=== PATIENT | female | born 1990 | race African-American/Black ===

== ENCOUNTER 2016-12-12 15:37 | Emergency (ER) | payer SELFPAY ==
[2016-12-12 15:45] VITALS: BMI 32.7
--- NOTE | 2016-12-12 15:52 | PDOC ---
History of Present Illness - General Chief Complaint: Hematuria Stated Complaint: RENAL INFECTION, RASH ON FACE Time Seen by Provider: 12/12/16 15:51 History Source: Patient - History of Present Illness Initial Comments: 12/12/16 18:47 26F with pmh of recurrent UTI presents to the ED with b/l 5/10 flank and suprapubic pain, dysuria with 10/10 pain and hematuria and mucus discharge, increased urine frequency and urgency for the past 5 days similar to previous episodes of UTi she had in the past. NO nausea, vomiting, fever. Thought the episode would go away on its own and doesn't have a primary to prescribe her abx for years. Also presents with erythematous pruritic papular rash around the hairline and temples for the past 2 days that the patient suspect to be due to new hair product. 12/12/16 18:54 12/12/16 18:59 Past History - Past Medical History Allergies/Adverse Reactions: Allergies Allergy/AdvReac Type Severity Reaction Status Date / Time ampicillin sodium Allergy Verified 12/12/16 15:44 [From Unasyn] sulbactam sodium Allergy Verified 12/12/16 15:44 [From Unasyn] Home Medications: Ambulatory Orders Nitrofurantoin Macrocrystal [Macrodantin -] 100 mg PO QID #28 capsule 12/12/16 Asthma: No Cancer: No Cardiac Disorders: Yes (murmur) Diabetes: No GI Disorders: No Disorders: Yes (kidney infection) HTN: No Hypercholesterolemia: No Seizures: No Thyroid Disease: No - Surgical History Abdominal Surgery: Yes Cardiac Surgery: Yes (REPAIR AT AGE 8) - Reproductive History Therapeutic (s) & number: Yes Spontaneous : 0 - Psycho/Social/Smoking Cessation Hx Anxiety: No Suicidal Ideation: No Smoking History: Never smoked Have you smoked in the past 12 months: Yes Number of Cigarettes Smoked Daily: 2 Information on smoking cessation initiated: No Hx Alcohol Use: No Drug/Substance Use Hx: No Substance Use Type: None Hx Substance Use Treatment: No Review of Systems - Review of Systems Constitutional: No: Symptoms Reported HEENTM: No: Symptoms Reported Respiratory: No: Symptoms reported Cardiac (ROS): No: Symptoms Reported ABD/GI: No: Symptoms Reported : Yes: See HPI Musculoskeletal: No: Symptoms Reported Integumentary: Yes: See HPI *Physical Exam - Vital Signs Last Vital Signs Temp Pulse Resp BP Pulse Ox 98.5 F 86 18 130/55 100 12/12/16 15:42 12/12/16 15:42 12/12/16 15:42 12/12/16 15:42 12/12/16 15:42 - Physical Exam General Appearance: Yes: Nourished, Appropriately Dressed. No: Apparent Distress HEENT: positive: EOMI, [place] Neck: positive: Trachea midline, Normal Thyroid. negative: Tender Respiratory/Chest: positive: Lungs Clear, Normal Breath Sounds. negative: Chest Tender Cardiovascular: positive: Regular Rhythm, Regular Rate, S1, S2 Vascular Pulses: Dorsalis-Pedis (R): 2+, Doralis-Pedis (L): 2+ Gastrointestinal/Abdominal: positive: Normal Bowel Sounds, Soft, Protuberent. negative: Tender, Organomegaly, Distended, Guarding Musculoskeletal: positive: Normal Inspection, CVA Tenderness (R), CVA Tenderness (L) Neurologic: positive: Fully Oriented, Alert, Normal Mood/Affect Medical Decision Making - Medical Decision Making 12/12/16 19:00 26F with pmh of recurrent UTI presents today with UTI symptoms. Renal U/S negative for hydro UA + for 1+leukocyte esterase 3+ protein, 3+ blood 1072 WBC 57 RBC PAtient started on NItrofurantoin. Claritin for rash *DC/Admit/Observation/Transfer Diagnosis at time of Disposition: UTI (urinary tract infection) Qualifiers: Urinary tract infection type: acute cystitis Hematuria presence: with hematuria Qualified Code(s): N30.01 - Acute cystitis with hematuria - Discharge Dispostion Disposition: HOME - Prescriptions Prescriptions: Nitrofurantoin Macrocrystal [Macrodantin -] 100 mg PO QID #28 capsule - Referrals Referrals: Sailaja Calderon MD [Staff Physician] - - Patient Instructions Printed Discharge Instructions: True or False: Drinking Cranberry Juice Can Help Reduce Your Risk of Urinar, DI for Urinary Tract Infection (UTI)
[2016-12-12 16:06] LABS: URINE APPEARANCE CLEAR; URINE BILIRUBIN 1+ (NEGATIVE); URINE BLOOD 3+ (NEGATIVE); URINE COLOR YELLOW; URINE GLUCOSE (UA) NEGATIVE (NEGATIVE); URINE KETONE NEGATIVE (NEGATIVE); URINE NITRITE NEGATIVE (NEGATIVE)
--- NOTE | 2016-12-12 16:06 | PDOC ---
Attending Attestation - Resident Resident Name: Jason Mercer - ED Attending Attestation I have performed the following: I have examined & evaluated the patient, The case was reviewed & discussed with the resident, I agree w/resident's findings & plan, Exceptions are as noted - HPI HPI: 12/12/16 16:24 26 yo with recurrent UTI presents today for what she feels is another UTI - Physicial Exam PE: 12/12/16 16:26 Vitals Stable, Nontoxic, NAD - Medical Decision Making 12/12/16 16:[address] Mercer's assessment and plan
[2016-12-12 16:10] LABS: URINE LEUK ESTERASE 1+ (NEGATIVE); URINE PROTEIN 3+ (NEGATIVE)
[2016-12-12 16:11] LABS: URINE BACTERIA RARE /hpf (NONE SEEN); URINE MUCUS MANY; URINE RBC 57 /hpf (0-3); URINE WBC 1072 /hpf (3-5); YEAST RARE
[2016-12-12] MEDS ORDERED: LORATADINE 10 MG TABLET PO ONE (16:12)
[2016-12-12] MEDS ORDERED: NITROFURANTOIN MACROCRYSTAL 50 MG CAPSULE (FP) PO SCH (18:00)
[2016-12-12] MEDS ORDERED: NITROFURANTOIN MACROCRYSTAL 50 MG CAPSULE (FP) ONE (18:16)
[2016-12-12 18:50] VITALS: BP 112/72; PULSE 89; TEMP 98.7
== END 2016-12-12 19:17 | disposition home or self-care (01) ==
LOC: JER 15:37
DX: N30.01 Acute cystitis with hematuria (principal); Z72.0 Tobacco use
CPT/HCPCS: 76775-TC; 81003; 81015; 84703; 87086; 99282-25

== ENCOUNTER 2018-10-06 08:23 | Emergency (ER) | payer SELFPAY, OTHER | END 2018-10-06 10:09 | disposition home or self-care (01) | LOC: JERFT 08:23 ==

== ENCOUNTER 2019-04-01 19:05 | Emergency (ER) | payer OTHER ==
[2019-04-01 19:17] VITALS: TEMP 98.7; BMI 33.8
--- NOTE | 2019-04-01 19:53 | PDOC ---
History of Present Illness - General Chief Complaint: Pain Stated Complaint: NAUSEA Time Seen by Provider: 04/01/19 19:43 - History of Present Illness Initial Comments: Ms. Ketan Curran is a 28 y/o female with PMH significant for VSD repair at age 6 , , presenting today with abdominal pain, nausea, and vomiting that started 5 days ago. Describes the pain as sharp and intermittent. Reports NBNB vomiting around twice per day. Pain does not radiate anywhere else. Denies fever/chills. Denies chest pain/shortness of breath. Reports diarrhea. Denies vaginal bleeding. Denies cough. Denies sick contacts. Denies dysuria/hematuria. LN beginning of March. Past History - Past Medical History Allergies/Adverse Reactions: Allergies Allergy/AdvReac Type Severity Reaction Status Date / Time ampicillin sodium Allergy Verified 10/06/18 08:24 [From Unasyn] Penicillins Allergy Verified 10/06/18 08:24 sulbactam sodium Allergy Verified 10/06/18 08:24 [From Unasyn] Home Medications: Ambulatory Orders Naproxen [Naprosyn -] 500 mg PO BID #30 tablet 10/06/18 Nitrofurantoin Monohyd/M-Cryst [Macrobid -] 100 mg PO BID #14 capsule 04/01/19 Asthma: No Cancer: No Cardiac Disorders: Yes (murmur) COPD: No Diabetes: No GI Disorders: No Disorders: Yes (kidney infection) HTN: No Hypercholesterolemia: No Seizures: No Thyroid Disease: No - Surgical History Abdominal Surgery: Yes Cardiac Surgery: Yes - Reproductive History Therapeutic (s) & number: Yes Spontaneous : 0 - Immunization History Immunization Up to Date: Yes - Psycho Social/Smoking Cessation Hx Smoking History: Never smoked Have you smoked in the past 12 months: Yes Number of Cigarettes Smoked Daily: 2 Cigars Per Day: 1 'Breaking Loose' booklet given: 09/07/15 Hx Alcohol Use: No Drug/Substance Use Hx: No Substance Use Type: None Hx Substance Use Treatment: No Review of Systems - Review of Systems Comments:: GENERAL/CONSTITUTIONAL: No fever or chills. No weakness._ HEAD, EYES, EARS, NOSE AND THROAT: No change in vision. No change in hearing. No sore throat._ CARDIOVASCULAR: No chest pain or shortness of breath_ RESPIRATORY: Denies cough, hemoptysis_ GASTROINTESTINAL: Reports nausea and vomiting and abdominal pain and diarrhea. Denies constipation. GENITOURINARY: No dysuria, frequency, or change in urination._ MUSCULOSKELETAL: No joint or muscle swelling or pain. No neck or back pain._ SKIN: No rash_ NEUROLOGIC: No headache, vertigo, loss of consciousness, or change in strength/ sensation._ ENDOCRINE: No increased thirst. No abnormal weight change_ HEMATOLOGIC/LYMPHATIC: No anemia, easy bleeding, or history of blood clots._ ALLERGIC/IMMUNOLOGIC: No hives or skin allergy._ *Physical Exam - Vital Signs Last Vital Signs Temp Pulse Resp BP Pulse Ox 98.7 F 105 H 19 122/54 L 100 04/01/19 19:14 04/01/19 19:14 04/01/19 19:14 04/01/19 19:14 04/01/19 19:14 - Physical Exam GENERAL: Awake, alert, and oriented to person/place/time, in no acute distress_ HEAD: No signs of trauma, normocephalic, atraumatic _ EYES: PERRLA, EOMI, sclera anicteric, conjunctiva clear_ ENT: Hearing grossly normal, nares patent, oropharynx clear without exudates. No uvular deviation. Moist mucosa_ NECK: Normal ROM, supple, no lymphadenopathy, JVD, or masses_ LUNGS: No distress, speaks in full sentences, clear to auscultation bilaterally _ HEART: Regular rate and rhythm, normal S1 and S2, no murmurs appreciated, peripheral pulses normal and equal bilaterally._ ABDOMEN: Soft, TTP epigastric and periumbilical areas. No guarding, no rebound. No masses_ EXTREMITIES: Normal inspection, Normal range of motion, no edema. No clubbing or cyanosis_ NEUROLOGICAL: Cranial nerves II through XII grossly intact. Normal speech, normal gait, no focal sensorimotor deficits _ SKIN: Warm, Dry, normal turgor, no rashes or lesions noted_ BACK: No CVA tenderness bilaterally. ED Treatment Course - LABORATORY CBC & Chemistry Diagram: 04/01/19 20:22 04/01/19 20:22 Medical Decision Making - Medical Decision Making 04/01/19 19:52 28F abdominal pain, nausea, vomiting that started 5 days ago. -cbc, cmp -ua, ucx, upreg 04/01/19 21:34 Upreg positive. Will obtain serum beta hcg quantitative. 04/01/19 22:37 Labs reviewed. Laboratory Tests 04/01/19 04/01/19 04/01/19 20:22 20:22 20:22 WBC 8.8 RBC 4.53 Hgb 10.7 Hct 34.4 MCV 75.8 L MCH 23.7 L MCHC 31.2 L RDW 15.2 Plt Count 319 D MPV 9.5 Absolute Neuts (auto) 4.1 Neutrophils % 46.5 Lymphocytes % 45.1 H Monocytes % 4.3 Eosinophils % 1.3 Basophils % 2.8 H Nucleated RBC % 0 Sodium 140 Potassium 3.6 Chloride 109 H Carbon Dioxide 23 Anion Gap 8 BUN 4.9 L Creatinine 0.6 Est GFR (CKD-EPI)AfAm 144.78 Est GFR (CKD-EPI)NonAf 124.92 Random Glucose 98 Calcium 9.2 Total Bilirubin 0.2 AST 18 ALT 42 Alkaline Phosphatase 72 Total Protein 7.4 Albumin 3.8 Lipase Beta HCG, Quant 4670.8 Urine Color Urine Appearance Urine pH Ur Specific [place] Urine Protein Urine Glucose (UA) Urine Ketones Urine Blood Urine Nitrite Urine Bilirubin Urine Urobilinogen Ur Leukocyte Esterase Urine WBC (Auto) Urine RBC (Auto) Urine Casts (Auto) U Epithel Cells (Auto) Urine Bacteria (Auto) Urine HCG, Qual Positive 04/01/19 04/01/19 20:22 20:22 WBC RBC Hgb Hct MCV MCH MCHC RDW Plt Count MPV Absolute Neuts (auto) Neutrophils % Lymphocytes % Monocytes % Eosinophils % Basophils % Nucleated RBC % Sodium Potassium Chloride Carbon Dioxide Anion Gap BUN Creatinine Est GFR (CKD-EPI)AfAm Est GFR (CKD-EPI)NonAf Random Glucose Calcium Total Bilirubin AST ALT Alkaline Phosphatase Total Protein Albumin Lipase 135 Beta HCG, Quant Urine Color Yellow Urine Appearance Cloudy Urine pH 6.0 Ur Specific [place] 1.016 Urine Protein Negative Urine Glucose (UA) Negative Urine Ketones 1+ H Urine Blood Negative Urine Nitrite Negative Urine Bilirubin Negative Urine Urobilinogen 1.0 Ur Leukocyte Esterase 3+ H Urine WBC (Auto) 16 Urine RBC (Auto) 1 Urine Casts (Auto) 12 U Epithel Cells (Auto) 11.3 Urine Bacteria (Auto) 229.0 Urine HCG, Qual 04/01/19 23:24 US Pelvic shows FINDINGS: Within the endometrium there is a gestational sac and yolk sac. No pole. Small subchorionic hematoma. The uterus measures 9.4 x 6.2 x 6.6 cm. There is no evidence of myometrial masses. The right ovary measures 2.8 x 1.5 x 2.2 cm. There are no right ovarian masses. The left ovary measures 3.9 x 2.8 x 2.5 cm. Left ovary 2.4 x 2.3 x 2.4 cm complex cystic process most likely represents a corpus luteal cyst. There is no free fluid in the pelvis. COLOR DUPLEX: There is satisfactory perfusion to both the left and right ovary with normal appearing arterial and venous spectral waveforms. IMPRESSION: No evidence of ovarian torsion. No evidence of ectopic. Intrauterine identified. No pole identified. This may be due to a normal early intrauterine that is too early to detect a pole versus a spontaneous . If clinically indicated recommend correlation with serial beta hCG levels. Small subchorionic hematoma. 04/01/19 23:34 Pt reports feeling much better. Plan to d/c home with PCP and OB follow up. Patient verbalized understanding and agreement with plan. All questions answered. Discharge - Discharge Information Problems reviewed: Yes Clinical Impression/Diagnosis: Qualifiers: Weeks of gestation: less than 8 weeks Qualified Code(s): Z3A.01 - Less than 8 weeks gestation of Condition: Stable Disposition: HOME - Admission No - Additional Discharge Information Prescriptions: Nitrofurantoin Monohyd/M-Cryst [Macrobid -] 100 mg PO BID #14 capsule - Follow up/Referral Referrals: Mohit Mckeon MD [Staff Physician] - Aminah Xavier MD [Staff Physician] - Jennifer Foster DO [Staff Physician] - - Patient Discharge Instructions Additional Instructions: Your test today was positive. Please make a follow up appointment with your OBGYN. Referrals are provided here if you need them. Please take over the counter vitamins until you are able to see your OBGYN. Please make a follow up appointment with a primary care doctor. Referrals are provided here if you need one. Please stay hydrated as much as possible with water, gatorade, etc. If you experience any new, worsening, or concerning symptoms, including severe abdominal pain, unable to keep down fluids, blood in the vomit or stool, vaginal bleeding, or any other concerns, please return to the emergency department. - Post Discharge Activity
[2019-04-01] MEDS ORDERED: SODIUM CHLORIDE 0.9% 500 ML INFUS.BAG IV ONE (20:34)
[2019-04-01] MEDS ORDERED: ACETAMINOPHEN 1000 MG/100 ML VIAL (NON FORMULARY) IVPB ONE (20:34)
[2019-04-01] MEDS ORDERED: ONDANSETRON 4 MG/2 ML VIAL IVPUSH ONE (20:34)
--- NOTE | 2019-04-01 20:45 | PDOC ---
Documentation entered by Roslyn Gillis SCRIBE, acting as scribe for Joanna Michael MD. Joanna Michael MD: This documentation has been prepared by the candaceibe, Roslyn Gillis SCRIBE, under my direction and personally reviewed by me in its entirety. I confirm that the documentation accurately reflects all work, treatment, procedures, and medical decision making performed by me. Attending Attestation - Resident Resident Name: King Troncoso - ED Attending Attestation I have performed the following: I have examined & evaluated the patient, The case was reviewed & discussed with the resident, I agree w/resident's findings & plan, Exceptions are as noted - HPI HPI: 04/01/19 20:00 The patient is a 28-year-old female with no reported past medical history who presents to the emergency department with several days of nausea and vomiting. The patient reports she's been having nausea with daily 2 episodes of nonbilious , nonbloody vomiting, associated with diarrhea. The patient reports sick contact with her daughter, who has a cough however, she doesn't have any of the patient's symptoms. Denies recent travel. LMP: Beginning of March. - Physicial Exam PE: 04/01/19 20:44 Well-nourished well-developed 28-year-old female who presents with 5 days of nausea vomiting and intermittent diarrhea Head normocephalic atraumatic Neck supple Lungs are clear to auscultation bilaterally CVS is regular rate and rhythm S1-S2 Abdomen there is some mild left lower quadrant tenderness to deep palpation No flank pain Skin is warm and dry Neuro alert and oriented x3, ambulating with ease, no gross focal neuro deficits 04/01/19 20:44 - Medical Decision Making 04/01/19 20:51 The urine test is positive -she denies any pelvic cramping or vaginal bleeding Plan we will add a beta hCG and pelvic ultrasound Impression probable hyperemesis related to 04/01/19 21:43 UA ++ UTI 04/01/19 22:33 Beta-hCG is greater than 4000 04/01/19 22:33 04/01/19 23:30 Pelvic ultrasound shows early intrauterine , no heart tones yet. Patient will need to have repeat beta-hCG and pelvic ultrasound done in 1 week
[2019-04-01 21:00] LABS: EPI CELLS 11.3 /HPF (0-5/HPF); HYALINE CASTS 12 /lpf (0-8); URINE APPEARANCE CLOUDY; URINE BILIRUBIN NEGATIVE (NEGATIVE); URINE COLOR YELLOW; URINE GLUCOSE (UA) NEGATIVE (NEGATIVE); URINE KETONE 1+ (NEGATIVE); URINE LEUK ESTERASE 3+ (NEGATIVE); URINE NITRITE NEGATIVE (NEGATIVE); URINE PROTEIN NEGATIVE (NEGATIVE); URINE RBC 1 /hpf (0-4); URINE WBC 16 /hpf (0-5)
[2019-04-01] MEDS ORDERED: ACETAMINOPHEN INJECTION 100 ML IVPB ONE (21:17)
[2019-04-01] MEDS ORDERED: ONDANSETRON 4 MG/2 ML VIAL ONE (21:18)
[2019-04-01 21:27] LABS: BASO % 2.8 % (0-2.0); EOS % 1.3 % (0-4.5); HEMATOCRIT 34.4 % (32.4-45.2); HEMOGLOBIN 10.7 GM/dL (10.7-15.3); LYMPH % 45.1 % (8-40); MCH 23.7 pg (25.7-33.7); MCHC 31.2 g/dl (32.0-36.0); MEAN CELL VOLUME 75.8 fl (80-96); MEAN PLT VOLUME 9.5 fl (7.5-11.1); MONO % 4.3 % (3.8-10.2); NEUT % 46.5 % (42.8-82.8); PLATELET COUNT 319 K/MM3 (134-434); RBC 4.53 M/mm3 (3.60-5.2); RDW 15.2 % (11.6-15.6); WHITE BLOOD COUNT 8.8 K/mm3 (4.0-10.0)
[2019-04-01] MEDS ORDERED: NITROFURANTOIN MACROCRYSTAL 50 MG CAPSULE (FP) PO SCH (21:45)
[2019-04-01 22:09] LABS: ALBUMIN 3.8 g/dl (3.4-5.0); BILIRUBIN,TOTAL 0.2 mg/dL (0.2-1); BLOOD UREA NITROGEN 4.9 mg/dL (7-18); CALCIUM 9.2 mg/dL (8.5-10.1); CREATININE 0.6 mg/dL (0.55-1.3); POTASSIUM 3.6 mmol/L (3.5-5.1); TOT PROT 7.4 g/dl (6.4-8.2)
[2019-04-01] MEDS ORDERED: NITROFURANTOIN MACROCRYSTAL 50 MG CAPSULE (FP) ONE (22:19)
[2019-04-01 23:48] VITALS: BP 122/63; PULSE 78
== END 2019-04-01 23:27 | disposition home or self-care (01) ==
LOC: JER 19:05
PROC: 3E033NZ Introduction of Analgesics, Hypnotics, Sedatives into Peripheral Vein, Percutaneous Approach (ICD-10-PCS; principal; 2019-04-01)
PROC: 3E033GC Introduction of Other Therapeutic Substance into Peripheral Vein, Percutaneous Approach (ICD-10-PCS; 2019-04-01)
DX: Z3A.01 Less than 8 weeks gestation of pregnancy (principal); O26.91 Pregnancy related conditions, unspecified, first trimester; Z88.8 Allergy status to other drugs, medicaments and biological substances; Z88.0 Allergy status to penicillin; R01.1 Cardiac murmur, unspecified; Z72.0 Tobacco use
CPT/HCPCS: 36415; 76801-TC; 80053; 81003; 83690; 84702; 84703; 85025; 87086; 87186; 96374; 96375; 99282-25; J0131

== ENCOUNTER 2019-07-07 09:38 | Emergency (ER) | payer OTHER ==
[2019-07-07 09:48] VITALS: BMI 32.1
--- NOTE | 2019-07-07 11:12 | PDOC ---
History of Present Illness - General Chief Complaint: Vaginal Bleeding Stated Complaint: VAGINAL BLEEDING Time Seen by Provider: 07/07/19 10:58 - History of Present Illness Initial Comments: 07/07/19 11:12 28 yo F (, concern about meconium), currently approximately 19 weeks , presenting with vaginal bleeding. Had one episode this morning at around 0830, but has since resolved. Complains of mild R sided crampy abominal pain, 5/10, intermittent, which she believes may be the baby kicking. OBGYN Dr. Price last seen yesterday, last ultrasound was June 20 and had no issues. Denies CP, SOB, fevers/chills, urinary symptoms, [place], N/V. LMP February 22, 2019. Past History - Past Medical History Allergies/Adverse Reactions: Allergies Allergy/AdvReac Type Severity Reaction Status Date / Time ampicillin sodium Allergy Verified 07/07/19 09:44 [From Unasyn] Penicillins Allergy Verified 07/07/19 09:44 sulbactam sodium Allergy Verified 07/07/19 09:44 [From Unasyn] Home Medications: Ambulatory Orders Naproxen [Naprosyn -] 500 mg PO BID #30 tablet 10/06/18 Nitrofurantoin Monohyd/M-Cryst [Macrobid -] 100 mg PO BID #14 capsule 04/01/19 Asthma: No Cancer: No Cardiac Disorders: Yes (murmur) COPD: No Diabetes: No GI Disorders: No Disorders: Yes (kidney infection) HTN: No Hypercholesterolemia: No Seizures: No Thyroid Disease: No - Surgical History Abdominal Surgery: Yes Cardiac Surgery: Yes - Reproductive History Therapeutic (s) & number: Yes Spontaneous : 0 - Immunization History Immunization Up to Date: Yes - Psycho Social/Smoking Cessation Hx Smoking History: Never smoked Have you smoked in the past 12 months: Yes Number of Cigarettes Smoked Daily: 2 Cigars Per Day: 1 'Breaking Loose' booklet given: 09/07/15 Hx Alcohol Use: No Drug/Substance Use Hx: No Substance Use Type: None Hx Substance Use Treatment: No Review of Systems - Review of Systems Comments:: 07/07/19 13:11 GENERAL/CONSTITUTIONAL: denies fever, chills, diaphoresis, generalized weakness, malaise, loss of appetite, weight change HEAD, EYES, EARS, NOSE AND THROAT: denies rhinorrhea, nasal congestion, throat pain, throat swelling, difficulty swallowing, mouth swelling, ear pain, eye pain, visual changes NEUROLOGIC: denies headache, focal weakness or paresthesias, dizziness, unsteady gait, seizure, mental status changes, bladder or bowel incontinence CARDIOVASCULAR: denies chest pain, syncope, palpitations, irregular heart rate, lightheadedness, peripheral edema RESPIRATORY: denies cough, shortness of breath, dyspnea with exertion, orthopnea, wheezing, stridor, hemoptysis GASTROINTESTINAL: endorses mild abdominal pain. Denies abdominal distension, nausea, vomiting, diarrhea, constipation, melena, hematochezia GENITOURINARY: endorses vaginal bleeding, now resolved. Denies dysuria, frequency, urgency, hesitancy, hematuria, flank pain, genital pain MUSCULOSKELETAL: denies myalgia, arthralgia, joint swelling, back pain, neck pain SKIN: denies rash, itching, pallor HEMATOLOGIC/IMMUNOLOGIC: denies easy bleeding, easy bruising, lymphadenopathy, frequent infections ENDOCRINE: denies unexplained weight gain, unexplained weight loss, heat intolerance, cold intolerance PSYCHIATRIC: denies anxiety, depression, suicidal or homicidal ideation, hallucinations *Physical Exam - Vital Signs Last Vital Signs Temp Pulse Resp BP Pulse Ox 98.5 F 78 18 105/57 L 100 07/07/19 09:44 07/07/19 09:44 07/07/19 09:44 07/07/19 09:44 07/07/19 09:44 - Physical Exam 07/07/19 13:12 Gen: well-developed, well-nourished, NAD Neuro: AAOX4, CN II-XII intact, FTN intact, EOMI, PERRLA, 5/5 strength, SILT HEENT: atraumatic, normocephalic Neck: trachea midline, supple CV: regular rate, regular rhythm, no murmurs, rubs, or gallops Pulm: CTA b/l, no wheezing Abd: soft, non-distended, palpable uterus right below umbilicus MSK: full ROM, intact pulses Extr: no edema, no deformities Skin: warm, dry ED Treatment Course - LABORATORY CBC & Chemistry Diagram: 07/07/19 11:10 07/07/19 11:10 Medical Decision Making - Medical Decision Making 07/07/19 13:08 Concern for vaginal bleeding during . Abdominal US with single live fetus at approximately 20 weeks. Will dc to L+D. Discharge - Discharge Information Problems reviewed: Yes Clinical Impression/Diagnosis: Vaginal bleeding Condition: Stable Disposition: HOME - Admission No - Follow up/Referral - Patient Discharge Instructions Patient Printed Discharge Instructions: DI for Vaginal Bleeding During Additional Instructions: You were seen with vaginal bleeding. The ultrasound showed a live fetus with a normal heart rate, at approximately 20 weeks gestational age. You will be discharged directly to labor and delivery for close monitoring. Follow up with your primary care doctor and your OBGYN within one week. Return to the ED if you develop new or worsening symptoms. - Post Discharge Activity
[2019-07-07 11:40] LABS: EOS % 1.7 % (0-4.5); HEMATOCRIT 33.8 % (32.4-45.2); HEMOGLOBIN 10.9 GM/dL (10.7-15.3); LYMPH % 34.9 % (8-40); MCH 24.2 pg (25.7-33.7); MCHC 32.2 g/dl (32.0-36.0); MEAN CELL VOLUME 75.2 fl (80-96); MEAN PLT VOLUME 10.2 fl (7.5-11.1); MONO % 4.9 % (3.8-10.2); NEUT % 56.5 % (42.8-82.8); PLATELET COUNT 321 K/MM3 (134-434); RBC 4.49 M/mm3 (3.60-5.2); RDW 15.3 % (11.6-15.6); WHITE BLOOD COUNT 9.1 K/mm3 (4.0-10.0)
[2019-07-07 11:41] LABS: URINE APPEARANCE CLEAR; URINE BILIRUBIN NEGATIVE (NEGATIVE); URINE COLOR YELLOW; URINE GLUCOSE (UA) NEGATIVE (NEGATIVE); URINE KETONE NEGATIVE (NEGATIVE); URINE LEUK ESTERASE NEGATIVE (NEGATIVE); URINE NITRITE NEGATIVE (NEGATIVE); URINE PROTEIN NEGATIVE (NEGATIVE); URINE UROBILINOGEN 0.2 mg/dL (0.2-1.0)
--- NOTE | 2019-07-07 12:56 | PDOC ---
Attending Attestation - Resident Resident Name: Gabi Juarez - ED Attending Attestation I have performed the following: I have examined & evaluated the patient, The case was reviewed & discussed with the resident, I agree w/resident's findings & plan, Exceptions are as noted - HPI HPI: 07/07/19 12:55 28-year-old female, 3 para 1, approximately 18 weeks gestation by last ultrasound presents with an episode of vaginal bleeding that has now resolved. Patient denies any other associated symptomatology. - Physicial Exam PE: 07/07/19 12:55 Patient is awake and alert, well-appearing, in no significant distress. Vital signs are noted Normocephalic and atraumatic PERRLA, EOMI CTA + Gravid uterus with fundus palpable at the umbilicus - Medical Decision Making 07/07/19 12:56 28-year-old female, 3 para 1, at approximately 19 weeks gestation presents with an episode of vaginal bleeding. Will obtain related ultrasound. Will consult [employer]. Will reassess.
[2019-07-07 13:19] LABS: ALBUMIN 3.2 g/dl (3.4-5.0); BILIRUBIN,TOTAL 0.4 mg/dL (0.2-1); CALCIUM 9.2 mg/dL (8.5-10.1); CREATININE 0.4 mg/dL (0.55-1.3); POTASSIUM 4.5 mmol/L (3.5-5.1); TOT PROT 7.2 g/dl (6.4-8.2)
[2019-07-07 14:29] VITALS: BP 133/70; PULSE 77; TEMP 98
== END 2019-07-07 14:24 | disposition home or self-care (01) ==
LOC: JER 09:38
DX: O26.892 Other specified pregnancy related conditions, second trimester (principal); Z3A.19 19 weeks gestation of pregnancy; N93.9 Abnormal uterine and vaginal bleeding, unspecified; Z88.0 Allergy status to penicillin; Z88.8 Allergy status to other drugs, medicaments and biological substances; R01.1 Cardiac murmur, unspecified; Z72.0 Tobacco use
CPT/HCPCS: 36415; 76801-TC; 80053; 81003; 84702; 85025; 86850; 86900; 86901; 87086; 99284-25

== ENCOUNTER 2019-11-21 07:20 | Inpatient (IN) | payer OTHER ==
[2019-11-21] MEDS ORDERED: CITRIC ACID/SODIUM CITRATE 30 ML UNIT-DOSE CUP PO ONE (07:52)
[2019-11-21] MEDS ORDERED: ELECTROLYTE-148 SOLN 1,000 ML IV SCH (08:00)
[2019-11-21 08:04] LABS: EOS % 1.1 % (0-4.5); HEMATOCRIT 27.8 % (32.4-45.2); HEMOGLOBIN 8.7 GM/dL (10.7-15.3); LYMPH % 42.7 % (8-40); MCH 23.2 pg (25.7-33.7); MCHC 31.3 g/dl (32.0-36.0); MEAN CELL VOLUME 74.3 fl (80-96); MEAN PLT VOLUME 10.8 fl (7.5-11.1); MONO % 6.5 % (3.8-10.2); NEUT % 48.7 % (42.8-82.8); PLATELET COUNT 184 K/MM3 (134-434); RBC 3.75 M/mm3 (3.60-5.2); RDW 17.1 % (11.6-15.6); WHITE BLOOD COUNT 7.3 K/mm3 (4.0-10.0)
[2019-11-21 08:14] LABS: INR 0.95 (0.83-1.09); PROTHROMBIN TIME (PATIENT) 11.2 SEC (9.7-13.0)
[2019-11-21 08:17] VITALS: BMI 34.4
[2019-11-21 08:26] LABS: BLOOD UREA NITROGEN 6.7 mg/dL (7-18); CALCIUM 8.1 mg/dL (8.5-10.1); CREATININE 0.6 mg/dL (0.55-1.3); POTASSIUM 3.8 mmol/L (3.5-5.1)
--- NOTE | 2019-11-21 08:27 | HP ---
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: Alzheimer's, CVA, Dementia, Migraine, Multiple Sclerosis, Peripheral Neuropathy, Parkinson's, Seizure, Syncope, TIA, Vertigo, Other Cardiovascular: No: AFIB, Aneurysm, Aortic Insufficiency, Aortic Stenosis, CAD, CHF, Deep Vein Thrombosis, HTN, Hyperlipdemia, GA, Mitral Insufficiency, Mitral Stenosis, Murmur, Pulmonary Hypertension, Other Pulmonary: No: Asthma, Bronchitis, Cancer, COPD, O2 Dependent, Pneumonia, Previously Intubated, Pulmonary Embolus, Pulmonary Fibrosis, Sleep Apnea, Other Gastrointestinal: No: Ascites, Cancer, Constipation, Crohn's Disease, Diverticulitis, Diverticulosis, Esophageal Varices, Gastritis, GERD, GI Bleed, Hemorrhoids, Hiatal Hernia, Inflamatory Bowel Disease, Irritable Bowel Disease, Pancreatitis, Peptic Ulcer Disease, Ulcerative Colitis, Other Hepatobiliary: No: Cirrhosis, Cholelithiasis, Cholecystitis, Choledocholithiasis, Hepatitis A, Hepatitis B, Hepatitis C, Other Renal/: No: Renal Failure, Renal Inusuff, BPH, Cancer, Hematuria, Hemodialysis, Neurogenic Bladder, Renal Calculi, UTI, Other Reproductive: No: Ectopic , Endometriosis, Fibroids, PID, Polycystic Ovary Syndrome, Postmenopausal, Other ...: 4 ...Para: 1 ...Term: 1 ...: 0 ...Spon : 1 ...Induced : 1 ...Living Children: 1 ...Multiple Gestation: 0 ...LMP: 02/22/19 ... Weeks Gestation by Dates: 38.6 ...EDC by Dates: 11/29/19 ...EDC by Sono: 11/28/19 Heme/Onc: No: Anemia, B12 Deficiency, Bleeding Disorder, Cancer, Current Chemotherapy, Current Radiation Therapy, Hemochromatosis, Hypercoaguable State, Myeloproliferative Synd, Sickle Cell Disease, Sickle Cell Trait, Thrombocytopenia, Other Infectious Disease: No: AIDS, C-Diff, Herpes Zoster, HIV, MRSA, STD's, Tuberculosis, VREF, Other Psych: No: Addictions, Anxiety, Bipolar, Depression, Panic, Psychosis, Schizophrenia, Other Musculoskeletal: No: Bursitis, Chronic low back pain, Hemiparesis, Hemiplegia, Osteoarthritis, Paraplegia, Other Rheumatology: No: Fibromyalgia, Gout, Lupus, Rheumatoid Arthritis, Sarcoidosis, Vasculitis, Other ENT: No: Allergic Rhinitis, Sinusitis, Other Endocrine: No: Sam[place]'s Disease, Steph's Disease, Diabetes Insipidus, Diabetes Mellitus, Hyperparathyroidism, Hyperthyroidism, Hypothyroidism, Osteopenia, SIADH, Other Dermatology: No: Basal Cell, Cellulitis, Eczema, Melanoma, Psoriasis, Squamous Cell, Other Additional Medical History: anemia. adhd (no meds). hpv-pos. scoliosis - Past Surgical History Past Surgical History: Yes: Hx Myomectomy: No Hx Transabdominal Cerclage: No Additional Surgical History: cardiac surgery - Smoking History Smoking history: Never smoked Have you smoked in the past 12 months: No Aproximately how many cigarettes per day: 2 - Alcohol/Substance Use Hx Alcohol Use: No - Social History ADL: Independent History of Recent Travel: No Home Medications - Allergies Allergies/Adverse Reactions: Allergies Allergy/AdvReac Type Severity Reaction Status Date / Time ampicillin sodium Allergy Verified 11/21/19 07:57 [From Unasyn] Penicillins Allergy Verified 11/21/19 07:57 sulbactam sodium Allergy Verified 11/21/19 07:57 [From Unasyn] - Home Medications Home Medications: Ambulatory Orders Vitamins (Sjr) - 1 tab PO DAILY 07/07/19 Family Medical History Family History: Unable to Obtain Review of Systems Findings/Remarks: Patient is doing well, anxious and "hungry" - Review of Systems Constitutional: reports: No Symptoms Eyes: reports: No Symptoms HENT: reports: No Symptoms Neck: reports: No Symptoms Cardiovascular: reports: No Symptoms Respiratory: reports: No Symptoms Gastrointestinal: reports: No Symptoms Genitourinary: reports: No Symptoms Breasts: reports: No Symptoms Reported Musculoskeletal: reports: No Symptoms Integumentary: reports: No Symptoms Neurological: reports: No Symptoms Endocrine: reports: No Symptoms Hematology/Lymphatic: reports: No Symptoms Psychiatric: reports: No Symptoms Physical Exam - Maternity Vital Signs: Vital Signs Temperature 99.1 F 11/21/19 07:20 Pulse Rate 103 H 11/21/19 07:20 Respiratory Rate 20 11/21/19 07:20 Blood Pressure 132/88 11/21/19 07:20 O2 Sat by Pulse Oximetry (%) Constitutional: Yes: No Distress HENT: Yes: Atraumatic Neck: Yes: Supple Cardiovascular: Yes: Regular Rate and Rhythm Breast(s): Yes: Other - Abdominal Exam/OB Contractions: No Regularity: Irritability Monitor Mode: External Heart Rate (range): 135 Category: I Accelerations: Uniform Decelerations: None - Vaginal Exam/OB Speculum Exam: No - Physical Exam Musculoskeletal: Yes: WNL Extremities: Yes: WNL Edema: Yes Edema: LLE: Trace, RLE: Trace Integumentary: Yes: WNL Deep Tendon Reflex Grade: Normal +2 ...Motor Strength: WNL Psychiatric: Yes: Alert, Oriented - Labs Lab Results: CBC, BMP 11/21/19 07:35 Imaging - Results Ultrasound: Report Reviewed Assessment/Plan 29 y/o P1 @ 39.0 wks, previous C/S and scheduled repeat, declined BTL on day of admission, reassuring status, anemia, H/O cardiac surgery as a child and adequate normal cardiology evaluation in . Risks and complications of procedure discussed. All questions answered and informed consent obtained. -Await labs results -Proceed with scheduled procedure.
[2019-11-21] MEDS ORDERED: morphine SULFATE/PF 0.5 MG/ML (2cc Syringe - QUVA) EP ONE (08:31)
[2019-11-21] MEDS ORDERED: ONDANSETRON 4 MG/2 ML VIAL IVPUSH PRN (08:31)
[2019-11-21] MEDS ORDERED: oxyCODONE HCL 5 MG TABLET PO PRN (08:35)
--- NOTE | 2019-11-21 08:35 | OP ---
Operative Note - Note: Operative Date: 11/21/19 (dic#[id number]) Pre-Operative Diagnosis: 29 y/o P1 @ 39.0 wks prior c/S desiring repeat Operation: RLTCS Post-Operative Diagnosis: Same as Pre-op Surgeon: Oliver Price Grants Manager: Serjio Salcido Anesthesia: Spinal Estimated Blood Loss (mls): 1,000 Blood Volume Replaced (mls): 200 Operative Report Dictated: Yes
[2019-11-21] MEDS ORDERED: morphine SULFATE/PF 0.5 MG/ML (2cc Syringe - QUVA) ONE (08:39)
[2019-11-21 08:40] LABS: ACTIVATED PTT 26.6 SECONDS (25.2-36.5)
[2019-11-21] MEDS ORDERED: OXYTOCIN 20 UNITS in 0.9% NS 20 UNIT/1,000 ML INFUS.BAG IV SCH (08:45)
[2019-11-21] MEDS ORDERED: OXYTOCIN 10 UNITS/ML VIAL ONE ×2 (09:26→10:22)
[2019-11-21] MEDS ORDERED: CLINDAMYCIN PHOSPHATE 600 MG/4 ML VIAL ONE (09:53)
[2019-11-21] MEDS ORDERED: CLINDAMYCIN 900 MG PREMIX BAG IVPB ONE (09:53)
[2019-11-21] MEDS ORDERED: MIDAZOLAM HCL 2 MG/2 ML SINGLE DOSE VIAL ONE (10:26)
[2019-11-21] MEDS ORDERED: PHENYLEPHRINE HCL 10 MG/1 ML SINGLE DOSE VIAL ONE (10:31)
[2019-11-21 11:11] LABS: CORD HCO3 22.3 mmHg (20-29); CORD PCO2 45.3 mmHg (30-78); CORD pH 7.31 (7.14-7.44)
[2019-11-21 11:15] LABS: CORD HCO3 20.9 mmHg (20-29); CORD PCO2 51.8 mmHg (30-78); CORD pH 7.223 (7.14-7.44)
[2019-11-21 13:32] VITALS: O2SAT 99
[2019-11-21] MEDS: IBUPROFEN 800 MG/8 ML IJ IVPB PRN (17:00)
[2019-11-22] MEDS: IBUPROFEN 800 MG/8 ML IJ IVPB PRN (06:07)
[2019-11-22] MEDS ORDERED: BISACODYL 10 MG SUPP.RECT RC PRN (08:35)
--- NOTE | 2019-11-22 08:51 | PN ---
Post Progress Note - Subjective Subjective: Pain controlled. No fevers/chills. Minimal ambulation. Tolerating PO Post Day: 1 Type of Delivery: Repeat C/S Vital Signs: Vital Signs Temperature 98.3 F 11/22/19 06:00 Pulse Rate 71 11/22/19 06:00 Respiratory Rate 18 11/22/19 08:00 Blood Pressure 120/74 11/22/19 06:00 O2 Sat by Pulse Oximetry (%) 99 11/21/19 13:32 Uterus: Yes: Fundus below umbilicus Incision: Yes: Dressing dry and intact Abdomen/GI: Yes: Abdomen soft, Tolerating PO Lochia: Yes: Rubra Lochia, amount: Small Extremities: Yes: Calves non-tender Activity: Ambulating - Labs Labs: CBC WBC 7.3 K/mm3 (4.0-10.0) 11/21/19 07:35 RBC 3.75 M/mm3 (3.60-5.2) 11/21/19 07:35 Hgb 8.7 GM/dL (10.7-15.3) L 11/21/19 07:35 Hct 27.8 % (32.4-45.2) L D 11/21/19 07:35 MCV 74.3 fl (80-96) L 11/21/19 07:35 MCH 23.2 pg (25.7-33.7) L 11/21/19 07:35 MCHC 31.3 g/dl (32.0-36.0) L 11/21/19 07:35 RDW 17.1 % (11.6-15.6) H 11/21/19 07:35 Plt Count 184 K/MM3 (134-434) D 11/21/19 07:35 MPV 10.8 fl (7.5-11.1) 11/21/19 07:35 Absolute Neuts (auto) 3.6 K/mm3 (1.5-8.0) 11/21/19 07:35 Neutrophils % 48.7 % (42.8-82.8) 11/21/19 07:35 Lymphocytes % 42.7 % (8-40) H D 11/21/19 07:35 Monocytes % 6.5 % (3.8-10.2) 11/21/19 07:35 Eosinophils % 1.1 % (0-4.5) 11/21/19 07:35 Basophils % 1.0 % (0-2.0) 11/21/19 07:35 Nucleated RBC % 3 % (0-0) H 11/21/19 07:35 Assessment/Plan 29yo s/p RLTCS, POD#1 Routine PP care PO pain control F/U AM labs OOB, ambulate D/c to home by POD#3 Simon Mason MD
[2019-11-22 08:58] LABS: BASO % 0.7 % (0-2.0); EOS % 0.2 % (0-4.5); HEMATOCRIT 27.2 % (32.4-45.2); HEMOGLOBIN 8.6 GM/dL (10.7-15.3); LYMPH % 16.1 % (8-40); MCH 24.4 pg (25.7-33.7); MCHC 31.5 g/dl (32.0-36.0); MEAN CELL VOLUME 77.3 fl (80-96); MEAN PLT VOLUME 10.4 fl (7.5-11.1); MONO % 6.2 % (3.8-10.2); NEUT % 76.8 % (42.8-82.8); PLATELET COUNT 164 K/MM3 (134-434); RBC 3.52 M/mm3 (3.60-5.2); RDW 19.4 % (11.6-15.6)
--- NOTE | 2019-11-22 13:07 | OP ---
DATE OF OPERATION: 11/21/2019 PREOPERATIVE DIAGNOSES: Lqrxic-uoyjm-khoy-old 1, para 1 at 39 weeks of gestation, prior section, desiring repeat section, declined sterilization on date of procedure; anemia; history of cardiac surgery as a child. POSTOPERATIVE DIAGNOSES: Mfmqwy-oedoa-tyyu-old 1, para 1 at 39 weeks of gestation, prior section, desiring repeat section, declined sterilization on date of procedure; anemia; history of cardiac surgery as a child. PROCEDURE: Repeat low transverse section. SURGEON: Bala Manzanares MD DOOR PULLER: ANSELMO Perez ANESTHESIA: Spinal. INTRAVENOUS FLUIDS: Crystalloid, 1500 mL. ESTIMATED BLOOD LOSS: 1 L. URINE OUTPUT: Clear urine, 200 mL. COMPLICATIONS: None. FINDINGS: Lower abdominal scar consistent with prior section, mild amount of subcutaneous adipose tissue with fascia all sticky and fibrotic, adherent to the underlying rectus muscles. The rectus muscles were fused at each other in the midline. No parietal peritoneal visceral adhesions at the point of entry. The bladder was slightly adherent to the lower uterine segment. The lower uterine segment was noted effaced. Infant in cephalic presentation, loose nuchal cord x1. Slightly meconium-stained fluid. Live viable male, scores 8 and 9. Uterus with 3 small subserosal fundal leiomyomas, largest 3 x 2 cm. Bilateral tubes and ovaries consistent with normal anatomy. Bladder dome and rectus muscle fascial interface noted to be intact. DESCRIPTION OF PROCEDURE: The patient was taken to the operating room. Anesthesia was found to be adequate. She was then prepped and draped in the normal sterile fashion. Urinary Jo catheter was placed atraumatically. Appropriate timeout took place. Pfannenstiel skin incision was made with the scalpel and carried to the underlying fascia with the Bovie. The fascia was incised in the midline and extended laterally with sharp dissection, then the rectus muscles were dissected off sharply. Rectus muscles were fused to each other in the midline and elevated with Allis clamp superiorly. Sharp dissection took place. Entry to the peritoneum sharply revealed the previously mentioned findings. The incision was extended inferiorly with sharp dissection without difficulty. Bladder blade was placed and findings as previously mentioned. Transverse lower uterine segment incision was made with the scalpel, extended laterally with blunt dissection. Amniotomy revealed slightly stained meconium fluid. was delivered through the surgical incision with mild fundal pressure without difficulty. Umbilical cord was clamped and cut after delay, sample for gases and blood was obtained. was handed off to the waiting NICU staff. The placenta was delivered manually and intact. The uterus was exteriorized through the surgical incision and the intrauterine cavity cleared of all clots and debris. The lower uterine segment incision was reapproximated with 1-0 Polysorb running locked sutures. Oozing from the left hysterotomy incision corner was neutralized with 3 [id number] sutures of the same stitch. Excellent hemostasis noted. The uterus was internalized to the pelvic cavity, and gutters were cleared of all clots and debris. Secondary inspection of the incision revealed excellent hemostasis. Bladder dome and rectus muscle fascial interface was examined. Rectus muscles were reapproximated manually, and fascial incision was reapproximated with 0 Polysorb running nonlocked suture. Excellent structural reapproximation achieved and confirmed by digital palpation by the surgeon. Subcutaneous tissues were copiously irrigated. Bleeding neutralized with Bovie cautery. Skin incision was reapproximated with 3-0 Biosyn subcuticular sutures, excellent reapproximation. Patient in stable condition. Instrument count was reported as correct x2 by the staff. Postoperative blood transfusion to accommodate intraoperative EBL will be performed. BALA MANZANARES MD [id number] MTDD
[2019-11-22] MEDS: IBUPROFEN 600 MG TABLET (FP) PO PRN ×2 (13:15→21:55)
[2019-11-22] MEDS: SIMETHICONE 80 MG TAB.CHEW (FP) PO PRN ×2 (13:16→21:54)
[2019-11-22] MEDS: ACETAMINOPHEN 325 MG TABLET (FP) PO PRN ×2 (13:16→21:54)
--- NOTE | 2019-11-22 15:23 | PN ---
Progress Note (short form) - Note Progress Note: pod#1 s/p c/s with spinal + duramorph. Pt c/o headache, nonpositional in nature, located primarily in temporal region. Denies neck stiffness, dizziness, associated nausea. Reassured patient of low likelihood of this being a postdural puncture headache. Recommended conservative measures and pain Rx. All questions answered.
[2019-11-23] MEDS: IBUPROFEN 600 MG TABLET (FP) PO PRN (05:47)
[2019-11-23] MEDS: ACETAMINOPHEN 325 MG TABLET (FP) PO PRN (05:48)
[2019-11-23] MEDS: SIMETHICONE 80 MG TAB.CHEW (FP) PO PRN (05:50)
--- NOTE | 2019-11-23 06:27 | DS ---
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: Vital Signs Temperature 98.3 F 11/23/19 01:48 Pulse Rate 96 H 11/22/19 22:00 Respiratory Rate 18 11/22/19 22:00 Blood Pressure 138/79 11/22/19 22:00 O2 Sat by Pulse Oximetry (%) 99 11/21/19 13:32 Constitutional: Yes: Well Nourished, No Distress, Calm Eyes: Yes: WNL, Conjunctiva Clear, EOM Intact HENT: Yes: WNL, Atraumatic, Normocephalic Neck: Yes: WNL, Supple, Trachea Midline Cardiovascular: Yes: WNL, Regular Rate and Rhythm Respiratory: Yes: WNL, Regular, CTA Bilaterally Gastrointestinal: Yes: WNL ...Rectal Exam: Yes: WNL Renal/: Yes: WNL ....Post : Yes: Uterus firm, Uterus non-tender, Slight lochia rubra Breast(s): Yes: WNL Musculoskeletal: Yes: WNL Extremities: Yes: WNL Integumentary: Yes: WNL Wound/Incision: Yes: Clean/Dry, Well Approximated, Sutures Intact Neurological: Yes: WNL, Alert, Oriented ...Motor Strength: WNL Psychiatric: Yes: WNL, Alert, Oriented Labs: CBC, BMP 11/22/19 08:35 11/21/19 07:35 Delivery - Delivery Section: Repeat Type of Anesthesia: Spinal EBL (cc): 1,000 Delivery, Single - Stages of Labor Date of Delivery: 11/21/19 Time of Delivery: 10:08 Time Placenta Delivered: 10:09 Placenta: Yes: Expressed - Condition of Electromedical Service Engineer/Laborer Wharf Present: Yes Name: Babs Villeda Gender: Male Weight: 6 lb 8 oz Total Hours ROM (Hrs/Mins): 1 minute - 1 Minute Total Score: 8 5 Minutes Total Score: 9 - [place] Feeding Plan Initial Plan: Exclusive throughout hospitalization Discharge Summary Reason For Visit: C SECTION Procedures: Principal: repeat LST c/s Health Concerns: anemia Plan of Treatment: iron, vit follow up [facility] care 1 week Condition: Stable - Instructions Diet, Activity, Other Instructions: Please return to regular diet as tolerated and refrain from strenuous activity as tolerated. Follow up with MD within a week from discharge. Call health center with any questions or concerns. Referrals: Oliver Price MD [Staff Physician] - Disposition: HOME - Home Medications Comprehensive Discharge Medication List: Ambulatory Orders Vitamins (Sjr) - 1 tab PO DAILY 07/07/19 Acetaminophen [Tylenol] 650 mg PO Q6H PRN #30 capsule MDD 5 11/21/19 Ibuprofen 600 mg PO Q6H PRN #30 tablet 11/21/19 Oxycodone HCl [Oxaydo] 5 mg PO Q6H PRN #14 tablet.orl MDD 5 11/21/19
--- NOTE | 2019-11-23 06:59 | PN ---
Progress Note (short form) - Note Progress Note: Post Anesthesia Note Pt is s/p c section under spinal anesthesia with duramorph intrathecally for post op pain control. Patient is doing well with, pain controlled, no adverse anesthetic effects, no headache, nausea, or back ache. Dept of anesthesiology will sign off care at this time
[2019-11-23 13:00] VITALS: BP 131/78; PULSE 58; TEMP 97.8
--- NOTE | 2019-11-28 11:21 | PATH ---
Surgical Pathology Report Patient Name: DAINA JAMIL Med. Rec. #: [id number] /Age/Gender: 1990 (Age: 29) / F Account: [id number] Location: [facility] OBS/CABLE PULLER Taken: 11/21/2019 Received: 11/21/2019 Reported: 11/28/2019 Physicians: Oliver Price MD Specimen(s) Received PLACENTA Clinical History Final Diagnosis PLACENTA, SECTION: 414 G THIRD TRIMESTER PLACENTA WITH TRIVASCULAR UMBILICAL CORD AND UNREMARKABLE PLACENTAL MEMBRANES. Electronically Signed Lenora Arce M.D. Gross Description The specimen is received fresh labeled placenta and is a 414 gram, 18.0 x 16.5 x 2.7 cm. placenta with attached membranes and umbilical cord. The attached membranes are fontaine, translucent with focal opacities and insert marginally. The umbilical cord measures 12 cm. in length and averages 1.1 cm. in diameter. There is an additional 14 cm in length x 1.2 cm in diameter unremarkable portion of umbilical cord separately received within the same container. The cord inserts eccentrically, 5 cm. to the nearest margin. No true knots or strictures are identified. Cut surface of the umbilical cord reveals 3 vessels. The surface is major-blue with minimal fibrin deposition and appropriate caliber vessels. The maternal surface is red-brown with focal defects. Sectioning reveals red-brown, spongy parenchyma. No lesions are identified. Sign Erector And Repairer sections are submitted in three cassettes as follows: 1- membrane rolls and umbilical cord; 2-3- full thickness sections of placenta. 11/23/2019 [facility]11/23/2019
== END 2019-11-23 16:50 | disposition home or self-care (01) | DRG 540 ==
LOC: JLDR 07:20 → J3W 12:40
PROVIDERS: ADMIT Student in an Organized Health Care Education/Training Program; ATTEND Student in an Organized Health Care Education/Training Program
PROC: 10D00Z1 Extraction of Products of Conception, Low, Open Approach (ICD-10-PCS; principal; 2019-11-21 08:00)
DX: O82 Encounter for cesarean delivery without indication (principal); O34.211 Maternal care for low transverse scar from previous cesarean delivery; O99.02 Anemia complicating childbirth; D64.89 Other specified anemias; Z3A.38 38 weeks gestation of pregnancy; Z37.0 Single live birth; O69.81X0 Labor and delivery complicated by cord around neck, without compression, not applicable or unspecified; O77.0 Labor and delivery complicated by meconium in amniotic fluid; O34.13 Maternal care for benign tumor of corpus uteri, third trimester; D25.2 Subserosal leiomyoma of uterus; Z88.0 Allergy status to penicillin; Z88.8 Allergy status to other drugs, medicaments and biological substances
CPT/HCPCS: 36415; 36430; 36511; 36600; 80048; 82803; 85025; 85610; 85730; 86780; 86850; 86900; 86901; 86922; 88307-TC; 94760; P9038; P9058

== ENCOUNTER 2020-10-31 10:39 | Emergency (ER) | payer OTHER ==
[2020-10-31 10:50] VITALS: BP 123/75; PULSE 76; TEMP 98.4; BMI 33.8
[2020-10-31] MEDS ORDERED: ACETAMINOPHEN 325 MG TABLET (FP) PO ONE (11:33)
[2020-10-31] MEDS ORDERED: PHENAZOPYRIDINE HCL 100 MG TABLET (FP) PO ONE (11:33)
[2020-10-31] MEDS ORDERED: PHENAZOPYRIDINE HCL 100 MG TABLET (FP) ONE (11:38)
[2020-10-31] MEDS ORDERED: ACETAMINOPHEN 325 MG TABLET (FP) ONE (11:38)
[2020-10-31 11:51] LABS: EPI CELLS 10 /uL (0-25.1); HCG,QUALITATIVE URINE Positive; HYALINE CASTS 2 /uL (0-3.1); URINE APPEARANCE CLOUDY; URINE BACTERIA 103 /uL (0-1359); URINE BILIRUBIN NEGATIVE (NEGATIVE); URINE COLOR YELLOW; URINE GLUCOSE (UA) NEGATIVE (NEGATIVE); URINE KETONE NEGATIVE (NEGATIVE); URINE LEUK ESTERASE 3+ (NEGATIVE); URINE NITRITE NEGATIVE (NEGATIVE); URINE PROTEIN 1+ (NEGATIVE); URINE RBC 293 /uL (0-23.9); URINE WBC 3147 /uL (0-25.8)
== END 2020-10-31 15:03 | disposition home or self-care (01) ==
LOC: JER 10:39 → JERFT 10:39
DX: O23.591 Infection of other part of genital tract in pregnancy, first trimester (principal); Z3A.01 Less than 8 weeks gestation of pregnancy
CPT/HCPCS: 36415; 76817-TC; 81003; 84702; 84703; 87086; 87491; 87591; 99284-25

== ENCOUNTER 2020-11-02 13:49 | Emergency (ER) | payer OTHER ==
[2020-11-02 13:54] VITALS: TEMP 98.6; BMI 33.8
[2020-11-02] MEDS ORDERED: ACETAMINOPHEN 325 MG TABLET (FP) PO ONE (14:57)
[2020-11-02] MEDS ORDERED: ACETAMINOPHEN 325 MG TABLET (FP) ONE (15:04)
[2020-11-02 15:36] LABS: BASO % 1.4 % (0-2.0); EOS % 1.1 % (0-4.5); HEMOGLOBIN 11.4 GM/dL (10.7-15.3); LYMPH % 39.1 % (8-40); MCH 24.7 pg (25.7-33.7); MCHC 31.7 g/dl (32.0-36.0); MEAN CELL VOLUME 77.7 fl (80-96); MEAN PLT VOLUME 9.1 fl (7.5-11.1); MONO % 8.3 % (3.8-10.2); NEUT % 50.1 % (42.8-82.8); PLATELET COUNT 307 10^3/uL (134-434); RBC 4.63 M/mm3 (3.60-5.2); RDW 16.6 % (11.6-15.6); WHITE BLOOD COUNT 7.5 K/mm3 (4.0-10.0)
[2020-11-02 15:37] LABS: PH,URINE 6.5 (5.0-8.0); URINE APPEARANCE Clear; URINE BILIRUBIN Negative (NEGATIVE); URINE COLOR Yellow; URINE GLUCOSE (UA) Negative (NEGATIVE); URINE KETONE Negative (NEGATIVE); URINE LEUK ESTERASE Trace (NEGATIVE); URINE NITRITE Negative (NEGATIVE); URINE PROTEIN Negative (NEGATIVE); URINE UROBILINOGEN 0.2 mg/dL (0.2-1.0)
[2020-11-02 15:42] LABS: INR 1.15 (0.83-1.09); PROTHROMBIN TIME (PATIENT) 13.9 SEC (9.7-13.0)
[2020-11-02 15:44] LABS: ACTIVATED PTT 29.2 SECONDS (25.2-36.5)
[2020-11-02 15:46] LABS: EPI CELLS 22.7 /uL (0-25.1); HYALINE CASTS 2.28 /uL (0-3.1); URINE BACTERIA 222.7 /uL (0-1359); URINE RBC 882.3 /uL (0-23.9)
[2020-11-02 16:03] LABS: ALBUMIN 4.2 g/dl (3.4-5.0); BLOOD UREA NITROGEN 5.2 mg/dL (7-18)
[2020-11-02 16:08] LABS: BILIRUBIN,TOTAL 0.5 mg/dL (0.2-1); TOT PROT 7.7 g/dl (6.4-8.2)
[2020-11-02 16:12] LABS: CREATININE 0.6 mg/dL (0.55-1.3)
[2020-11-02 16:20] VITALS: BP 133/70; PULSE 66
== END 2020-11-02 17:16 | disposition home or self-care (01) ==
LOC: JER 13:49
DX: O03.9 Complete or unspecified spontaneous abortion without complication (principal); O20.8 Other hemorrhage in early pregnancy; N39.0 Urinary tract infection, site not specified
CPT/HCPCS: 36415; 76817-TC; 80053; 81003; 84702; 85025; 85610; 85730; 86850; 86900; 86901; 87086; 87186; 99284-25

== ENCOUNTER 2021-09-20 10:21 | Emergency (ER) | payer OTHER ==
[2021-09-20 10:26] VITALS: BP 107/58; PULSE 82; TEMP 98.2; BMI 33.3
[2021-09-20] MEDS ORDERED: SODIUM CHLORIDE 1,000 ML IV STA (10:57)
[2021-09-20] MEDS ORDERED: ACETAMINOPHEN 1000 MG/100 ML BAG IVPB ONE (10:57)
[2021-09-20] MEDS ORDERED: ACETAMINOPHEN INJECTION 100 ML IVPB ONE (11:11)
[2021-09-20 11:16] LABS: BASO % 0.3 % (0-2.0); EOS % 2.4 % (0-4.5); HEMATOCRIT 34.1 % (32.4-45.2); HEMOGLOBIN 10.9 GM/dL (10.7-15.3); LYMPH % 50.4 % (8-40); MCH 23.9 pg (25.7-33.7); MEAN CELL VOLUME 74.7 fl (80-96); MEAN PLT VOLUME 9.1 fl (7.5-11.1); MONO % 6.9 % (3.8-10.2); PLATELET COUNT 321 10^3/uL (134-434); RBC 4.57 M/mm3 (3.60-5.2); RDW 15.3 % (11.6-15.6); WHITE BLOOD COUNT 6.4 K/mm3 (4.0-10.0)
[2021-09-20 11:42] LABS: CALCIUM 9.1 mg/dL (8.5-10.1)
[2021-09-20 11:43] LABS: ALBUMIN 3.6 g/dl (3.4-5.0); BLOOD UREA NITROGEN 6.5 mg/dL (7-18)
[2021-09-20 11:45] LABS: CREATININE 0.7 mg/dL (0.55-1.3)
[2021-09-20 11:47] LABS: BILIRUBIN,TOTAL 0.5 mg/dL (0.2-1)
[2021-09-20 12:09] LABS: URINE APPEARANCE CLEAR; URINE BILIRUBIN NEGATIVE (NEGATIVE); URINE COLOR YELLOW; URINE GLUCOSE (UA) NEGATIVE (NEGATIVE); URINE KETONE NEGATIVE (NEGATIVE); URINE LEUK ESTERASE NEGATIVE (NEGATIVE); URINE NITRITE NEGATIVE (NEGATIVE); URINE PROTEIN NEGATIVE (NEGATIVE)
== END 2021-09-20 13:07 | disposition home or self-care (01) ==
LOC: JER 10:21
PROC: 3E033GC Introduction of Other Therapeutic Substance into Peripheral Vein, Percutaneous Approach (ICD-10-PCS; principal; 2021-09-20)
DX: R10.11 Right upper quadrant pain (principal); M54.50 Low back pain, unspecified
CPT/HCPCS: 36415; 76705-TC; 80053; 81003; 83690; 84703; 85025; 87086; 99284-25